=== PATIENT | female | born 1985 | race Caucasian/White ===

== ENCOUNTER 2020-01-17 12:10 | Emergency (ER) | payer OTHER ==
[2020-01-17 12:26] VITALS: BP 127/84; RESP 18; TEMP 97.7
--- NOTE | 2020-01-17 12:35 | ED ---
Upper Extremity HPI - General Chief Complaint: Extremity Injury, Upper Stated Complaint: lt hand injury Time Seen by Provider: 01/17/20 12:29 Source: patient, RN notes reviewed, old records reviewed Mode of arrival: ambulatory Limitations: no limitations - History of Present Illness Initial Comments: Patient is a 34-year-old female presents to the ER today for evaluation for left hand pain. Patient reportedly was walking up the stairs of her camper and fell hitting the left fourth and fifth metacarpal of her hand on the step bracing her fall. She denies any other injuries related to the fall. Denies any chest pain just breath, headache nausea or vomiting. Patient states that she is right- handed. - Related Data Allergies Allergy/AdvReac Type Severity Reaction Status Date / Time blueberry Allergy Unknown Verified 01/17/20 12:27 Review of Systems ROS Statement: Those systems with pertinent positive or pertinent negative responses have been documented in the HPI. ROS Other: All systems not noted in ROS Statement are negative. Past Medical History Additional Past Medical History / Comment(s): PCOS. Endometrosis. Gestational diabetes. History of Any Multi-Drug Resistant Organisms: None Reported Past Surgical History: Section, Cholecystectomy Additional Past Surgical History / Comment(s): scoliosis surgery. Endo Surgery. plastic surgery on both ear drums. Past Psychological History: No Psychological Hx Reported Smoking Status: Never smoker Past Alcohol Use History: Occasional Past Drug Use History: None Reported General Exam - General Exam Comments Initial Comments: 34-year-old female. Alert and oriented. No distress. Limitations: no limitations General appearance: alert, in no apparent distress Head exam: Present: atraumatic, normocephalic, normal inspection Eye exam: Present: normal appearance, PERRL, EOMI. Absent: scleral icterus, conjunctival injection, periorbital swelling ENT exam: Present: normal exam, mucous membranes moist Neck exam: Present: normal inspection. Absent: tenderness, meningismus, lymphadenopathy Respiratory exam: Present: normal lung sounds bilaterally. Absent: respiratory distress, wheezes, rales, rhonchi, stridor Cardiovascular Exam: Present: regular rate, normal rhythm, normal heart sounds. Absent: systolic murmur, diastolic murmur, rubs, gallop, clicks GI/Abdominal exam: Present: soft, normal bowel sounds. Absent: distended, tenderness, guarding, rebound, rigid Extremities exam: Present: normal inspection, full ROM, normal capillary refill. Absent: tenderness, pedal edema, joint swelling, calf tenderness Left Upper Arm exam: Present: normal inspection, full ROM Elbow exam: Present: normal inspection, full ROM Forearm Wrist exam: Present: normal inspection, full ROM Hand Wrist exam: Present: full ROM, tenderness, swelling (Patient has tenderness and swelling over the fourth and fifth metacarpal.). Absent: normal inspection Back exam: Present: normal inspection Neurological exam: Present: alert, oriented X3, CN II-XII intact Psychiatric exam: Present: normal affect, normal mood Skin exam: Present: warm, dry, intact, normal color. Absent: rash Course Vital Signs 01/17/20 12:21 Temperature 97.7 F Pulse Rate 75 Respiratory 18 Rate Blood Pressure 127/84 O2 Sat by Pulse 97 Oximetry Procedures - Orthopedic Splinting/Casting Injury #1 Side: left Upper Extremity Injury Location: hand Upper Extremity Immobilizer: ulnar gutter, Raphael wrap, synthetic pre-padded splint Additional Comments: Pt is reevaluated neurovascularly intact. Medical Decision Making - Radiology Data Radiology results: report reviewed Proximal fourth metacarpal left fracture left hand. Disposition Clinical Impression: Fracture of fourth metacarpal bone Disposition: HOME SELF-CARE Condition: Good Instructions (If sedation given, give patient instructions): Hand Fracture (ED) Additional Instructions: Patient advised to follow-up with debt collection specialist. Return to emergency department if any alarming signs or symptoms occur. Patient should remain in the splint until seen by orthopedic for full plaster cast. Do not get the splint wet. Is patient prescribed a controlled substance at d/c from ED?: No Referrals: Nonstaff,Physician [Primary Care Provider] - 1-2 days Time of Disposition: 13:24
--- NOTE | 2020-01-17 13:02 | XR ---
Left hand HISTORY: Pain and swelling, trauma 3 views of the left hand There is an oblique fracture through the proximal fourth metacarpal with minimal displacement. No dis location. IMPRESSION: Proximal fourth metacarpal fracture left hand
[2020-01-17] MEDS ORDERED: ACET/COD 300 MG/30 MG STARTER PACK 6 TAB BTL PO STA (13:25)
[2020-01-17 13:40] VITALS: PULSE 80
== END 2020-01-17 13:40 | disposition home or self-care (01) ==
LOC: EC 12:10
DX: S62.305A Unspecified fracture of fourth metacarpal bone, left hand, initial encounter for closed fracture (principal); Z91.018 Allergy to other foods; W10.8XXA Fall (on) (from) other stairs and steps, initial encounter; Y93.01 Activity, walking, marching and hiking; Y92.009 Unspecified place in unspecified non-institutional (private) residence as the place of occurrence of the external cause
CPT/HCPCS: 29125; 99284